=== PATIENT | male | born 1950 | race Caucasian/White ===

== ENCOUNTER 2017-11-24 22:59 | Emergency (ER) | payer MEDICARE, OTHER ==
[~2017-11-24] VITALS: Ht 172.7 cm; Wt 72.6 kg
[~2017-11-24 22:59] MED LIST: (None)20 M1 PO; ACET325 PO; ACETAMINOPHEN500 MG PO; ALBU90OI INH; ALBU90OI6 INH; ALPR.5; AMOCLA500 PO; AMOX500 PO; ASPI325 PO; Acidophilus La100 GM PO; BENZ100A PO; Bactrim Ds Tab1 EACH PO; CEPH500 PO; CHLO10 PO; CHLO25 PO; CHOL10002 PO; CLOBETTC TP; CLOT1TC TOP; Calcium + Vita1 EACH PO; DICL25ER PO; DOXY100 PO; Desyrel50 MG PO; Doxycycline Mo100 M1 PO; ERGO400 PO; FLUO10 PO; FOLI1 PO; GUAI600T33 PO; HYDACE10B PO; HYDACE5 PO; HYDR1TAB94 PO; IBUP600 PO; IBUP800 PO; KETO10 PO; LEVFLO500 PO; LEVO750 PO; LORTAB 7.5-3251 EACH PO; MAGOXI400 PO; MULVITMIND PO; Mobic7.5 MG PO; NAPR500 PO; NAPR550 PO; NEOPOLHCSU OT; NICO21TP; NICO21TP TD; Naprosyn500 MG PO; Norco 7.5-3251 EACH PO; OMEPRAZOLE MAGN20 MG PO; OXYACE5T PO; Oxazepam30 MG PO; PERM5TC TOP; PRED20 PO; PROM25 PO; RXCYCL10 PO; RXLORA1 PO; RXOXYACE PO; RXPRED10 PO; SILSUL1TC; SPIR25 PO; SULTRIDS PO; THIA100 PO; TRAM50 PO; TRAZ50 PO; Tylenol325 MG PO; ULTRA-LIGHT RO1 EACH MC; Ultram50 MG PO; Vibramycin100 MG PO; Zithromax250 MG PO
[2017-12-19] MEDS ORDERED: BENZ100A PO (14:48)
[2018-05-14] MEDS ORDERED: NAPR500 PO (02:54)
== END 2017-11-24 23:35 | disposition home or self-care (01) ==
LOC: ER 22:59
DX: M54.9 Dorsalgia, unspecified (principal); G89.29 Other chronic pain; F17.200 Nicotine dependence, unspecified, uncomplicated
CPT/HCPCS: 99283

== ENCOUNTER 2017-11-28 10:47 | Emergency (ER) | payer MEDICARE, OTHER ==
[~2017-11-28] VITALS: Ht 162.6 cm; Wt 56.7 kg
[2017-11-28 11:46] LABS: BASOPHILS ABSOLUTE AUTO 0.03 K/mm3 (0.00-0.23); BASOPHILS PERCENT AUTO 0 % (0-2); EOSINOPHILS ABSOLUTE AUTO 0.41 K/mm3 (0.00-0.68); EOSINOPHILS PERCENT AUTO 6 % (0-6); Hematocrit 39.3 % (37.0-53.0); Hemoglobin 13.2 g/dL (13.5-17.5); IMMATURE GRAN ABSOLUTE AUTO 0.04 K/mm3 (0.00-0.10); IMMATURE GRAN PERCENT AUTO 1 % (0-1); LYMPHOCYTES ABSOLUTE AUTO 1.19 K/mm3 (0.84-5.20); LYMPHOCYTES PERCENT AUTO 18 % (21-46); MONOCYTES ABSOLUTE AUTO 0.51 K/mm3 (0.16-1.47); MONOCYTES PERCENT AUTO 8 % (4-13); Mean Corpuscular HGB 32.9 pg (26.0-34.0); Mean Corpuscular HGB Conc 33.6 g/dL (31.5-36.5); Mean Corpuscular Volume 98 fL (80-100); Mean Platelet Volume 9.2 fL (9.1-12.4); NEUTROPHILS ABSOLUTE AUTO 4.61 K/mm3 (1.96-9.15); NEUTROPHILS PERCENT AUTO 68 % (41-73); Platelet Count 123 K/mm3 (150-400); RDW Coefficient Variation 12.8 % (11.7-14.2); RDW Standard Deviation 46.2 fL (35.1-46.3); Red Blood Cell Count 4.01 M/mm3 (4.30-5.90); White Blood Cell Count 6.79 K/mm3 (4.00-11.30)
[2017-11-28 12:02] LABS: Alanine Aminotransfer (ALT/SGP 87 U/L (12-78); Albumin, Blood 3.9 g/dL (3.4-5.0); Albumin/Globulin Ratio 1.1 (0.8-1.8); Alk Phos 108 U/L (50-136); Anion Gap 20 mmol/L (6-16); Aspartate Aminotrans (AST/SGOT 180 U/L (12-37); Blood Urea Nitrogen 7 mg/dL (8-24); Bun/Creatinine Ratio 11.3 (12.0-20.0); CO2, Blood 16 mmol/L (21-32); Calcium, Blood 8.1 mg/dL (8.5-10.1); Chloride, Blood 97 mmol/L (98-108); Creatinine, Blood 0.62 mg/dL (0.60-1.20); Ethanol (Alcohol), Blood, Med 23 mg/dL; Globulin, Blood 3.4 g/dL (2.2-4.0); Glomerular Filtration Rate >60 (60-); Glucose, Blood 84 mg/dL (70-99); Potassium, Blood 3.5 mmol/L (3.5-5.5); Sodium, Blood 133 mmol/L (136-145); Total Protein, Blood 7.3 g/dL (6.4-8.2)
[2017-11-28] MEDS ORDERED: CHLO25 PO (13:00)
[2017-11-28] MEDS ORDERED: Permethrin60 GM TOP (13:00)
[2017-12-19] MEDS ORDERED: BENZ100A PO (14:48)
[2018-05-14] MEDS ORDERED: NAPR500 PO (02:54)
== END 2017-11-28 14:30 | disposition home or self-care (01) ==
LOC: ER 10:47
PROVIDERS: Emergency Medicine
DX: R56.9 Unspecified convulsions (principal); F10.239 Alcohol dependence with withdrawal, unspecified; R21 Rash and other nonspecific skin eruption; F17.200 Nicotine dependence, unspecified, uncomplicated; Y90.1 Blood alcohol level of 20-39 mg/100 ml
CPT/HCPCS: 80053; 85025; 96361; 96374; 96375; 99283; G0480; J1200; J2060; J7030

== ENCOUNTER 2017-12-15 19:38 | Emergency (ER) | payer MEDICARE, OTHER ==
[~2017-12-15] VITALS: Ht 167.6 cm; Wt 72.6 kg
[~2017-12-15 19:38] MED LIST changes: +Permethrin60 GM TOP
[2017-12-15] MEDS ORDERED: NAPR550 PO (19:53)
[2017-12-15] MEDS ORDERED: Permethrin60 GM TOP (19:53)
[2017-12-19] MEDS ORDERED: BENZ100A PO (14:48)
[2018-05-14] MEDS ORDERED: NAPR500 PO (02:54)
== END 2017-12-15 20:39 | disposition home or self-care (01) ==
LOC: ER 19:38
DX: G89.29 Other chronic pain (principal); M54.5 Low back pain; B85.0 Pediculosis due to Pediculus humanus capitis; Z59.0 Homelessness
CPT/HCPCS: 96372; 99283; J1885

== ENCOUNTER 2017-12-19 10:01 | Emergency (ER) | payer MEDICARE, OTHER ==
[~2017-12-19] VITALS: Ht 167.6 cm; Wt 72.6 kg
[2017-12-19] MEDS ORDERED: Vistaril25 MG PO (12:34)
[2017-12-19] MEDS ORDERED: BENZ100A PO ×2 (14:48)
[2018-05-14] MEDS ORDERED: NAPR500 PO (02:54)
== END 2017-12-19 12:54 | disposition home or self-care (01) ==
LOC: ER 10:01
DX: J06.9 Acute upper respiratory infection, unspecified (principal); L29.9 Pruritus, unspecified; F17.200 Nicotine dependence, unspecified, uncomplicated
CPT/HCPCS: 71045; 99283; Q0177

== ENCOUNTER 2017-12-20 17:49 | Emergency (ER) | payer MEDICARE, OTHER ==
[~2017-12-20] VITALS: Ht 167.6 cm; Wt 72.6 kg
[~2017-12-20 17:49] MED LIST changes: +Vistaril25 MG PO
[2018-05-14] MEDS ORDERED: NAPR500 PO (02:54)
== END 2017-12-21 01:29 | disposition home or self-care (01) ==
LOC: ER 17:49
DX: M54.9 Dorsalgia, unspecified (principal); G89.29 Other chronic pain; Z59.0 Homelessness; Z79.899 Other long term (current) drug therapy; F17.210 Nicotine dependence, cigarettes, uncomplicated
CPT/HCPCS: 99283

== ENCOUNTER 2017-12-24 21:43 | Emergency (ER) | payer MEDICARE, OTHER ==
[~2017-12-24] VITALS: Ht 167.6 cm; Wt 72.6 kg
[2018-05-14] MEDS ORDERED: NAPR500 PO (02:54)
== END 2017-12-24 23:39 | disposition home or self-care (01) ==
LOC: ER 21:43
DX: R07.89 Other chest pain (principal); B86 Scabies; R29.6 Repeated falls; F17.210 Nicotine dependence, cigarettes, uncomplicated; W19.XXXA Unspecified fall, initial encounter; Y92.828 Other wilderness area as the place of occurrence of the external cause; Z87.81 Personal history of (healed) traumatic fracture
CPT/HCPCS: 36415; 71045; 93005; 93010; 99283; Q0163

== ENCOUNTER 2017-12-29 08:34 | Emergency (ER) | END 2017-12-29 13:07 | disposition home or self-care (01) ==

== ENCOUNTER 2018-02-08 21:36 | Emergency (ER) | payer MEDICARE, OTHER ==
[~2018-02-08] VITALS: Ht 172.7 cm; Wt 72.6 kg
[2018-02-09] MEDS ORDERED: IBUP800 PO (08:18)
== END 2018-02-08 23:12 | disposition home or self-care (01) ==
LOC: ER 21:36
DX: S09.90XA Unspecified injury of head, initial encounter (principal); S60.221A Contusion of right hand, initial encounter; S60.811A Abrasion of right wrist, initial encounter; F10.129 Alcohol abuse with intoxication, unspecified; F17.210 Nicotine dependence, cigarettes, uncomplicated; W18.30XA Fall on same level, unspecified, initial encounter
CPT/HCPCS: 70450; 72125; 73110; 99284

== ENCOUNTER 2018-02-09 00:54 | Emergency (ER) | payer MEDICARE, OTHER ==
[~2018-02-09] VITALS: Ht 175.3 cm; Wt 72.6 kg
[2018-02-09] MEDS ORDERED: IBUP800 PO (08:18)
== END 2018-02-09 01:22 | disposition home or self-care (01) ==
LOC: ER 00:54
DX: F10.129 Alcohol abuse with intoxication, unspecified (principal); M79.1 Myalgia; Z65.8 Other specified problems related to psychosocial circumstances; F17.210 Nicotine dependence, cigarettes, uncomplicated
CPT/HCPCS: 99283

== ENCOUNTER 2018-02-09 07:01 | Emergency (ER) | payer MEDICARE, OTHER ==
[~2018-02-09] VITALS: Ht 167.6 cm; Wt 68.0 kg
[2018-02-09] MEDS ORDERED: IBUP800 PO (08:18)
== END 2018-02-09 08:50 | disposition home or self-care (01) ==
LOC: ER 07:01
DX: S29.9XXA Unspecified injury of thorax, initial encounter (principal); M25.551 Pain in right hip; F17.210 Nicotine dependence, cigarettes, uncomplicated; Z59.0 Homelessness; W01.0XXA Fall on same level from slipping, tripping and stumbling without subsequent striking against object, initial encounter
CPT/HCPCS: 71101

== ENCOUNTER 2018-02-11 12:47 | Emergency (ER) | payer MEDICARE, OTHER ==
[~2018-02-11] VITALS: Ht 167.6 cm; Wt 72.6 kg
[2018-02-11] MEDS ORDERED: IBUP600 PO (16:09)
[2018-02-12] MEDS ORDERED: IBUP600 PO (23:21)
[2018-02-12] MEDS ORDERED: LIDO700A20 TOP (23:21)
== END 2018-02-11 16:15 | disposition home or self-care (01) ==
LOC: ER 12:47
DX: S22.41XA Multiple fractures of ribs, right side, initial encounter for closed fracture (principal); M25.551 Pain in right hip; W22.8XXA Striking against or struck by other objects, initial encounter; F17.210 Nicotine dependence, cigarettes, uncomplicated
CPT/HCPCS: 71046; 99283

== ENCOUNTER 2018-02-12 21:41 | Emergency (ER) | payer MEDICARE, OTHER ==
[~2018-02-12] VITALS: Ht 167.6 cm; Wt 72.6 kg
[2018-02-12] MEDS ORDERED: LIDO700A20 TOP (23:21)
[2018-02-12] MEDS ORDERED: IBUP600 PO (23:21)
== END 2018-02-13 00:20 | disposition home or self-care (01) ==
LOC: ER 21:41
DX: S22.41XD Multiple fractures of ribs, right side, subsequent encounter for fracture with routine healing (principal); M25.511 Pain in right shoulder; W19.XXXD Unspecified fall, subsequent encounter; F17.210 Nicotine dependence, cigarettes, uncomplicated
CPT/HCPCS: 96372; 99283; J1885

== ENCOUNTER 2018-03-10 20:59 | Emergency (ER) | payer MEDICARE, OTHER ==
[~2018-03-10] VITALS: Ht 167.6 cm; Wt 72.6 kg
[~2018-03-10 20:59] MED LIST changes: +LIDO700A20 TOP
[2018-03-10] MEDS ORDERED: IBUP600 PO (22:24)
== END 2018-03-10 23:10 | disposition home or self-care (01) ==
LOC: ER 20:59
DX: S22.31XA Fracture of one rib, right side, initial encounter for closed fracture (principal); W19.XXXA Unspecified fall, initial encounter; F17.210 Nicotine dependence, cigarettes, uncomplicated
CPT/HCPCS: 71046; 99283

== ENCOUNTER 2018-04-03 19:50 | Emergency (ER) | payer MEDICARE, OTHER ==
[~2018-04-03] VITALS: Ht 167.6 cm; Wt 72.6 kg
== END 2018-04-03 22:51 | disposition home or self-care (01) ==
LOC: ER 19:50
DX: G89.29 Other chronic pain (principal); M54.9 Dorsalgia, unspecified; F17.210 Nicotine dependence, cigarettes, uncomplicated
CPT/HCPCS: 99282; J1885

== ENCOUNTER 2018-04-16 00:34 | Emergency (ER) | payer MEDICARE, OTHER ==
[~2018-04-16] VITALS: Ht 167.6 cm; Wt 72.6 kg
[2018-04-16 02:05] LABS: BASOPHILS ABSOLUTE AUTO 0.05 K/mm3 (0.00-0.23); BASOPHILS PERCENT AUTO 1 % (0-2); EOSINOPHILS ABSOLUTE AUTO 0.02 K/mm3 (0.00-0.68); EOSINOPHILS PERCENT AUTO 0 % (0-6); Hematocrit 35.6 % (37.0-53.0); Hemoglobin 12.1 g/dL (13.5-17.5); IMMATURE GRAN ABSOLUTE AUTO 0.04 K/mm3 (0.00-0.10); IMMATURE GRAN PERCENT AUTO 1 % (0-1); LYMPHOCYTES ABSOLUTE AUTO 0.56 K/mm3 (0.84-5.20); LYMPHOCYTES PERCENT AUTO 8 % (21-46); MONOCYTES PERCENT AUTO 13 % (4-13); Mean Corpuscular HGB 33.1 pg (26.0-34.0); Mean Corpuscular Volume 97 fL (80-100); Mean Platelet Volume 8.9 fL (9.1-12.4); NEUTROPHILS ABSOLUTE AUTO 5.19 K/mm3 (1.96-9.15); NEUTROPHILS PERCENT AUTO 77 % (41-73); Platelet Count 161 K/mm3 (150-400); RDW Coefficient Variation 13.6 % (11.7-14.2); RDW Standard Deviation 48.7 fL (35.1-46.3); Red Blood Cell Count 3.66 M/mm3 (4.30-5.90); White Blood Cell Count 6.76 K/mm3 (4.00-11.30)
[2018-04-16 02:17] LABS: Ethanol (Alcohol), Blood, Med <3 mg/dL; Magnesium, Blood 1.9 mg/dL (1.6-2.4)
[2018-04-16 02:18] LABS: Alanine Aminotransfer (ALT/SGP 30 U/L (12-78); Albumin, Blood 3.6 g/dL (3.4-5.0); Alk Phos 83 U/L (50-136); Anion Gap 11 mmol/L (6-16); Aspartate Aminotrans (AST/SGOT 57 U/L (12-37); Bilirubin, Total 0.6 mg/dL (0.1-1.0); Blood Urea Nitrogen 10 mg/dL (8-24); Bun/Creatinine Ratio 12.9 (12.0-20.0); CO2, Blood 26 mmol/L (21-32); Calcium, Blood 8.8 mg/dL (8.5-10.1); Chloride, Blood 104 mmol/L (98-108); Creatinine, Blood 0.78 mg/dL (0.60-1.20); Globulin, Blood 3.5 g/dL (2.2-4.0); Glomerular Filtration Rate >60 (60-); Glucose, Blood 98 mg/dL (70-99); Potassium, Blood 3.9 mmol/L (3.5-5.5); Sodium, Blood 141 mmol/L (136-145); Total Protein, Blood 7.1 g/dL (6.4-8.2)
[2018-04-16 03:19] LABS: Source, Urine Clean Catch
[2018-04-16 03:25] LABS: Bilirubin, Urine Neg (Neg); Blood, Urine 2+ (Neg); Glucose Qualitative, Urine Neg (Neg); Ketones, Urine Neg (Neg); Leukocyte Esterase, Urine Neg (Neg); Nitrite, Urine Neg (Neg); Protein, Urine 2+ (Neg); Urobilinogen, Urine NORM (Normal)
[2018-04-16 03:38] LABS: U Amphetamine Screen Not Detected; U Barbituate Screen Not Detected; U Benzodiazapine Screen Not Detected; U Buprenorphine Screen Not Detected; U Cannabinoids Screen Not Detected; U Cocaine Screen Not Detected; U Methadone Screen Not Detected; U Methamphetamine Screen Not Detected; U Opiates Screen Not Detected; U Oxycodone Screen Not Detected; U Phencyclidine Screen Not Detected; U Propoxyphene Screen Not Detected
[2018-04-16 03:41] LABS: Appearance, Urine Clear (Clear); Bacteria Not Seen /hpf; Color, Urine Yellow (P-Yellow); Hyaline Casts 0-2 /lpf (0-2); Red Blood Cells, Urine Rare /hpf (0-2); Squamous Epithelial Cells Not Seen /hpf (Few); White Blood Cells, Urine Not Seen /hpf (0-5)
[2018-04-16] MEDS ORDERED: CHLO25 PO (05:47)
== END 2018-04-16 06:20 | disposition home or self-care (01) ==
LOC: ER 00:34
PROVIDERS: Emergency Medicine
DX: F10.239 Alcohol dependence with withdrawal, unspecified (principal); Y90.0 Blood alcohol level of less than 20 mg/100 ml; F17.210 Nicotine dependence, cigarettes, uncomplicated
CPT/HCPCS: 80053; 81001; 83735; 85025; 93005; 93010; 96374; 99284; G0480; J2060

== ENCOUNTER 2018-04-26 20:07 | Emergency (ER) | payer MEDICARE, OTHER ==
[~2018-04-26] VITALS: Ht 165.1 cm; Wt 63.5 kg
[2018-04-26] MEDS ORDERED: NAPR500 PO (21:06)
== END 2018-04-26 22:03 | disposition home or self-care (01) ==
LOC: ER 20:07
DX: G89.29 Other chronic pain (principal); M54.9 Dorsalgia, unspecified; F17.210 Nicotine dependence, cigarettes, uncomplicated; Z59.0 Homelessness
CPT/HCPCS: 99283; J1885

== ENCOUNTER 2018-05-04 16:20 | Emergency (ER) | payer MEDICARE, OTHER ==
[~2018-05-04] VITALS: Ht 170.2 cm; Wt 72.6 kg
[2018-05-04 16:44] LABS: BASOPHILS ABSOLUTE AUTO 0.08 K/mm3 (0.00-0.23); BASOPHILS PERCENT AUTO 1 % (0-2); EOSINOPHILS ABSOLUTE AUTO 0.03 K/mm3 (0.00-0.68); EOSINOPHILS PERCENT AUTO 0 % (0-6); Hematocrit 31.5 % (37.0-53.0); Hemoglobin 10.7 g/dL (13.5-17.5); IMMATURE GRAN ABSOLUTE AUTO 0.03 K/mm3 (0.00-0.10); IMMATURE GRAN PERCENT AUTO 0 % (0-1); LYMPHOCYTES ABSOLUTE AUTO 2.08 K/mm3 (0.84-5.20); LYMPHOCYTES PERCENT AUTO 29 % (21-46); MONOCYTES ABSOLUTE AUTO 0.73 K/mm3 (0.16-1.47); MONOCYTES PERCENT AUTO 10 % (4-13); Mean Corpuscular HGB 34.2 pg (26.0-34.0); Mean Corpuscular Volume 101 fL (80-100); Mean Platelet Volume 8.4 fL (9.1-12.4); NEUTROPHILS ABSOLUTE AUTO 4.17 K/mm3 (1.96-9.15); NEUTROPHILS PERCENT AUTO 59 % (41-73); Platelet Count 260 K/mm3 (150-400); RDW Coefficient Variation 13.9 % (11.7-14.2); RDW Standard Deviation 51.4 fL (35.1-46.3); Red Blood Cell Count 3.13 M/mm3 (4.30-5.90); White Blood Cell Count 7.12 K/mm3 (4.00-11.30)
[2018-05-04 17:09] LABS: Alanine Aminotransfer (ALT/SGP 26 U/L (12-78); Albumin, Blood 3.3 g/dL (3.4-5.0); Albumin/Globulin Ratio 0.9 (0.8-1.8); Alk Phos 116 U/L (50-136); Anion Gap 9 mmol/L (6-16); Aspartate Aminotrans (AST/SGOT 42 U/L (12-37); Bilirubin, Total 0.3 mg/dL (0.1-1.0); Blood Urea Nitrogen 8 mg/dL (8-24); Bun/Creatinine Ratio 10.9 (12.0-20.0); CO2, Blood 24 mmol/L (21-32); Calcium, Blood 7.9 mg/dL (8.5-10.1); Chloride, Blood 109 mmol/L (98-108); Creatinine, Blood 0.74 mg/dL (0.60-1.20); Globulin, Blood 3.6 g/dL (2.2-4.0); Glomerular Filtration Rate >60 (60-); Glucose, Blood 112 mg/dL (70-99); Potassium, Blood 4.1 mmol/L (3.5-5.5); Sodium, Blood 142 mmol/L (136-145); Total Protein, Blood 6.9 g/dL (6.4-8.2)
[2018-05-04 17:10] LABS: Ethanol (Alcohol), Blood, Med 343 mg/dL
[2018-05-04] MEDS ORDERED: Keflex500 MG PO (18:12)
[2018-05-05] MEDS ORDERED: CEPH500 PO (16:17)
== END 2018-05-04 18:37 | disposition home or self-care (01) ==
LOC: ER 16:20
PROVIDERS: Emergency Medicine
DX: L03.114 Cellulitis of left upper limb (principal); F10.10 Alcohol abuse, uncomplicated; Z59.0 Homelessness; F17.210 Nicotine dependence, cigarettes, uncomplicated
CPT/HCPCS: 36415; 73030; 80053; 85025; 93971; 96374; 99284; G0480; J0690

== ENCOUNTER 2018-05-05 15:19 | Emergency (ER) | payer MEDICARE, OTHER ==
[~2018-05-05] VITALS: Ht 167.6 cm; Wt 72.6 kg
[~2018-05-05 15:19] MED LIST changes: +Keflex500 MG PO
[2018-05-05] MEDS ORDERED: CEPH500 PO (16:17)
== END 2018-05-05 16:35 | disposition home or self-care (01) ==
LOC: ER 15:19
DX: L03.114 Cellulitis of left upper limb (principal); Z91.14 Patient's other noncompliance with medication regimen; Z59.0 Homelessness
CPT/HCPCS: 99283

== ENCOUNTER 2018-05-05 19:27 | Emergency (ER) | payer MEDICARE, OTHER ==
[~2018-05-05] VITALS: Ht 167.6 cm; Wt 70.3 kg
== END 2018-05-05 21:00 | disposition home or self-care (01) ==
LOC: ER 19:27
DX: M25.551 Pain in right hip (principal); M25.552 Pain in left hip; F17.210 Nicotine dependence, cigarettes, uncomplicated; W18.30XA Fall on same level, unspecified, initial encounter
CPT/HCPCS: 99283

== ENCOUNTER 2018-05-05 23:29 | Emergency (ER) | payer MEDICARE, OTHER ==
[~2018-05-05] VITALS: Ht 170.2 cm; Wt 72.6 kg
== END 2018-05-06 01:35 | disposition home or self-care (01) ==
LOC: ER 23:29
DX: M25.551 Pain in right hip (principal); M25.552 Pain in left hip; R07.9 Chest pain, unspecified; M54.9 Dorsalgia, unspecified; F17.210 Nicotine dependence, cigarettes, uncomplicated
CPT/HCPCS: 99281

== ENCOUNTER 2018-05-26 18:21 | Emergency (ER) | payer MEDICARE, OTHER ==
[~2018-05-26] VITALS: Ht 157.5 cm; Wt 61.2 kg
[2018-05-26] MEDS ORDERED: Naprosyn500 MG PO (19:52)
== END 2018-05-26 20:04 | disposition home or self-care (01) ==
LOC: ER 18:21
DX: Z76.0 Encounter for issue of repeat prescription (principal); S52.032D Displaced fracture of olecranon process with intraarticular extension of left ulna, subsequent encounter for closed fracture with routine healing; F17.210 Nicotine dependence, cigarettes, uncomplicated
CPT/HCPCS: 29105; 73080; 73502; 99284-25